=== PATIENT | female | born 1975 | race Caucasian/White ===

== ENCOUNTER 2022-03-25 20:38 | Emergency (ER) | payer MEDICAID, SELFPAY ==
[2022-03-25 20:38] VITALS: BP 164/91; PULSE 101; RESP 16; TEMP 38.4; O2SAT 96; BMI 36.3
--- NOTE | 2022-03-25 20:47 | XR_ITS ---
PROCEDURE INFORMATION: Exam: XR Chest Exam date and time: 03/25/2022 8:53 PM Age: 47 years old Clinical indication: Fever and other: Congestion; Additional info: Congestion fever TECHNIQUE: Imaging protocol: Radiologic exam of the chest. Views: 2 views. COMPARISON: No relevant prior studies available. FINDINGS: Lungs: No consolidation. Pleural spaces: No pneumothorax. Heart/Mediastinum: No cardiomegaly. Bones/joints: No acute fracture. IMPRESSION: No acute findings.
[2022-03-25 20:50] LABS: Coronavirus 19, PCR Not Detected (NotDetected); Influenza B, PCR Not Detected (NotDetected); Microscopic, Urine URINE MICROSCOPIC (MICROSCOPIC)
--- NOTE | 2022-03-25 20:50 | ECG_ITS ---
APPROVED REPORT Exam: Resting ECG HR:96 bpm ECG Measurements Heart Rate 96 AXES MO 106 P 73 QRSd 90 QRS 85 QT 338 T 52 QTc 391 Conclusion SINUS RHYTHM WITH SHORT MO INTERVAL POSSIBLE RIGHT VENTRICULAR CONDUCTION DELAY [RSR (QR) IN V1/V2] NONSPECIFIC ST & T-WAVE ABNORMALITY BORDERLINE ECG UNCONFIRMED REPORT Electronically signed by : Bhupinder Villalobos MD 03/27/2022 21:13:38
--- NOTE | 2022-03-25 20:55 | PC.NURSE ---
RAD at for CXR
[2022-03-25 21:03] LABS: Appearance,Urine CLEAR (Clear); Blood, Urine Negative (Negative); Color,Urine YELLOW (Yellow); Glucose,Urine (UA) Negative (Negative); Ketones,Urine 1+ (Negative); Leukocyte Esterase,Urine Negative (Negative); Nitrate,Urine Negative (Negative); Protein,Urine Negative (Negative); Specific Gravity, Urine 1.025 (1.005-1.030)
[2022-03-25 21:18] LABS: Chloride 100 mmol/L (98-107)
[2022-03-25 21:19] LABS: Basophils # 0.1 K/mm3 (0-0.2); Basophils % 1.6 % (0.1-2.0); Eosinophils # 0.4 K/mm3 (0.0-0.4); Eosinophils % 7.2 % (0.1-12.0); Hematocrit 45.5 % (37.0-47.0); Lymphocytes # 0.8 K/mm3 (0.7-4.5); Lymphocytes % 13.4 % (10-50); Mean Corpuscular Hemoglobin 31.6 pg (27.0-31.2); Mean Corpuscular Volume 95.8 fl (81-99); Mean Platelet Volume 9.3 fl (7.4-10.4); Monocytes # 0.3 K/mm3 (0.1-1.0); Monocytes % 5.3 % (1.7-9.3); Neutrophils # 4.2 K/mm3 (1.8-7.8); Neutrophils % 72.5 % (37.0-80.0); Platelet Count 201 K/mm3 (142-424); Potassium 3.6 mmoL/L (3.5-5.1); Red Blood Count 4.75 M/mm3 (4.20-5.40); Red Cell Distribution Width 13.5 % (11.5-17.5); Sodium 139 mmol/L (136-145); White Blood Count 5.7 K/mm3 (4.8-10.8)
[2022-03-25 21:20] LABS: Bacteria,Urine Trace /lpf; Bilirubin,Urine Negative (Negative); WBC,Urine Occasional #/hpf (0-3)
[2022-03-25 21:21] LABS: Alanine Aminotransferase 34 U/L (12-78); Albumin/Globulin Ratio 1.3 (1.1-1.8); Alkaline Phosphatase 112 U/L (38-126); Anion Gap 12.6 mEq/L (5-15); Aspartate Amino Transferase 34 U/L (14-36); Bilirubin,Total 0.3 mg/dl (0.2-1.3); Blood Urea Nitrogen 6 mg/dl (7-17); Carbon Dioxide 30 mmol/L (22.0-30.0); Creatinine Clearance Estimated 140 mL/min (50-200); Estimated Glomerular Filt Rate 77 ml/min (>60); GFR (African American) 93 ML/MIN (>60)
[2022-03-25 21:22] LABS: Calcium 8.4 mg/dl (8.4-10.2); Glucose 107 mg/dl (74-100); Lactic Acid 0.6 mmol/L (0.7-2.1)
--- NOTE | 2022-03-25 21:24 | PC.NURSE ---
Dr. Gilbert at
--- NOTE | 2022-03-25 21:27 | HMH.EDURI ---
Discharge Plan Disposition Patient Disposition: Home, Self-Care Prescriptions Prescriptions: New oseltamivir [Tamiflu] 75 mg capsule 75 mg PO BID 5 Days Qty: 10 0RF oseltamivir [Tamiflu] 75 mg capsule 75 mg PO BID 5 Days Qty: 10 0RF Referrals Follow up/Referrals: Provider,Referral, MD [Referring] - See instructions Clinical Impressions Clinical Impression: Influenza Instructions Patient Instructions: DI for Influenza -- Adult Discharge ED Provider: Arturo Gilbert URI/Sore Throat HPI General Chief Complaint: Upper Respiratory Infection Stated Complaint: Fever Time Seen by Provider: 03/25/22 21:27 Mode of Arrival: EMS Source of Information: Patient, EMS and Medical Record Limitations: No Limitations Description of Symptoms (Recalled from ER Triage Doc. by RN): pt c/o cough,congestion, fever, body aches since saturday History of Present Illness HPI Narrative: uri sx with cough and congestion over the last few days Complaint: cough and nasal congestion Onset (ago): day(s) Duration: intermittent Severity: moderate Associated symptoms: denies other symptoms Related Data Previous Rx's Medication Instructions Recorded oseltamivir 75 mg capsule (Tamiflu) 75 mg PO BID 5 days #10 caps 03/25/22 oseltamivir 75 mg capsule (Tamiflu) 75 mg PO BID 5 days #10 caps 03/25/22 Allergies Allergy/AdvReac Type Severity Reaction Status Date / Time cefdinir [From Omnicef] Allergy Verified 03/25/22 20:42 fluticasone Allergy Verified 03/25/22 20:42 [From Advair Diskus] salmeterol Allergy Verified 03/25/22 20:42 [From Advair Diskus] morphine AdvReac Verified 03/25/22 20:42 PFSH PFSH Social History Smoking Status: Never smoker alcohol intake: never current occupational status: employed Travel in the last 8 weeks: None ROS Obtained: Yes All systems reviewed & no additional complaints except as documented Physical Exam General General appearance: alert Head Head exam: normocephalic Eye Eye exam: Present PERRL and EOMI ENT ENT exam: Present mucous membranes moist Neck Neck exam: Present trachea midline Respiratory Respiratory exam: Present normal lung sounds bilaterally; Absent respiratory distress Cardiovascular Cardiovascular exam: Present regular rate Abdominal Exam Abdominal exam: Present soft Extremities Exam Extremities exam: Present full ROM Neurological Exam Neurological exam: Present alert, oriented X3 and CN II-XII intact Psychiatric Psychiatric exam: Present normal affect Skin Skin exam: Absent rash Medical Decision Making Medical Records Medical records reviewed: Yes I reviewed the patient's medical records. Gerald Inquiry Pt receiving controlled substance: No Vital Signs: 03/25/22 20:38 03/25/22 21:30 Temperature 101.1 F H Temperature Source Oral Pulse Rate 101 H Pulse Rate [Right] 101 H Respiratory Rate 16 Blood Pressure 141/87 H Blood Pressure [Right Arm] 164/91 H Blood Pressure Mean [Right Arm] 115 02 Sat by Pulse Oximetry 96 93 L Oxygen Delivery Method Room Air Lab Data Lab results reviewed: Yes I reviewed the patient's lab results. Lab Results 03/25/22 20:46: Urine Color Yellow, Urine Appearance Clear, Urine pH 6.0, Ur Specific [place] 1.025, Urine Protein Negative, Urine Glucose (UA) Negative, Urine Ketones 1+, Urine Blood Negative, Urine Nitrate Negative, Urine Bilirubin Negative, Urine Urobilinogen 1.0, Ur Leukocyte Esterase Negative, Urine RBC None, Urine WBC Occasional, Ur Squamous Epith Cells 3-5, Urine Bacteria Trace 03/25/22 20:46: SARS-CoV-2 (PCR) Not detected, Influenza A Untype (PCR) Detected A, Influenza Type B (PCR) Not detected 03/25/22 21:00: WBC 5.7, RBC 4.75, Hgb 15.0, Hct 45.5, MCV 95.8, MCH 31.6 H, MCHC 33.0, RDW 13.5, Plt Count 201, MPV 9.3, Neut % (Auto) 72.5, Lymph % (Auto) 13.4, [place] % (Auto) 5.3, Eos % (Auto) 7.2, Baso % (Auto) 1.6, Neut # (Auto) 4.2, Lymph # (Auto) 0.8, [place] # (Auto) 0.3, Eos # (A
[2022-03-25 21:30] VITALS: BP 141/87; PULSE 101; O2SAT 93
[2022-03-25 21:48] LABS: Erythrocyte Sedimentation Rate 17 mm/hr (0-20)
[2022-03-25 21:49] LABS: Influenza A, PCR Detected (NotDetected)
[2022-03-25 21:56] LABS: Procalcitonin 0.086 ng/mL (0.0-2.0)
[2022-03-25 22:30] VITALS: BP 134/90; PULSE 93; RESP 16; TEMP 37.2; O2SAT 94
--- NOTE | 2022-03-25 22:42 | PC.NURSE ---
pt very upset upon discharge. pt ststed her bp was high. The cuff appeared loose and off proper location so i adjusted it and retook it her bp was with in normal limits pt was still verbally aggressive then proceeded to the lobby.
== END 2022-03-25 22:30 | disposition home or self-care (01) ==
PROVIDERS: Emergency Provider Emergency Medicine; PCP Family Medicine
DX: J10.1 Influenza due to other identified influenza virus with other respiratory manifestations (principal)
CPT/HCPCS: 71046; 80053; 81001; 83605; 84145; 85025; 85651; 87040; 93005; 99283; C9803; U0003; U0005

== ENCOUNTER 2022-03-26 09:15 | Emergency (ER) | payer MEDICAID, SELFPAY ==
[2022-03-26 09:15] VITALS: BP 111/72; PULSE 90; RESP 18; TEMP 36.9; O2SAT 96; BMI 36.3
--- NOTE | 2022-03-26 09:18 | ECG_ITS ---
APPROVED REPORT Exam: Resting ECG HR:78 bpm ECG Measurements Heart Rate 78 AXES FL 124 P 76 QRSd 95 QRS 85 QT 378 T 59 QTc 411 Conclusion SINUS RHYTHM WITH SINUS ARRHYTHMIA NONSPECIFIC ST & T-WAVE ABNORMALITY BORDERLINE ECG UNCONFIRMED REPORT Electronically signed by : Bhupinder Villalobos MD 03/27/2022 21:13:26
[2022-03-26 09:30] VITALS: BP 111/74; O2SAT 92
--- NOTE | 2022-03-26 09:31 | HMH.EDCP ---
Discharge Plan Disposition Patient Disposition: Home, Self-Care Prescriptions Prescriptions: New ondansetron HCl 4 mg Tablet 4 mg PO TID PRN (Reason: Nausea) Qty: 9 0RF No Action oseltamivir [Tamiflu] 75 mg capsule 75 mg PO BID 5 Days Qty: 10 0RF oseltamivir [Tamiflu] 75 mg capsule 75 mg PO BID 5 Days Qty: 10 0RF Referrals Follow up/Referrals: Provider,Referral, MD [Primary Care Provider] - See instructions Activity Restrictions/Add. Instructions Additional Instructions/Restrictions: Use tylenol and ibuprofen for pain and fever. Use the medications as prescribed and follow up with your primary care physician. Clinical Impressions Clinical Impression: Influenza, Atypical chest pain Instructions Patient Instructions: DI for Atypical Chest Pain Discharge ED Provider: Roger Islas Chest Pain HPI General Chief Complaint: Chest Pain Stated Complaint: CHEST PAIN Time Seen by Provider: 03/26/22 09:20 Mode of Arrival: Ambulatory Limitations: No Limitations Description of Symptoms (Recalled from ER Triage Doc. by RN): PT DISCHARGED LAST NIGHT WITH THE FLU, REPORTS CHEST PAIN AND HEADACHE SINCE YESTERDAY AM. CHESTPAIN CONTINUES History of Present Illness HPI narrative: 47-year-old female who presents with complaint of chest pain particularly worse with taking a deep breath however the patient was discharged from overnight ER evaluation and never left the facility she came back signing in prior to discharge and transport with complaint of chest pain stating that she has the flu. Reviewed the work-up from last night her complaint has not changed she states it has been constant continuous she is persistently coughing does not feel significantly short of breath. No history of thrombosis not on estrogenic medications at this time. Related Data Previous Rx's Medication Instructions Recorded oseltamivir 75 mg capsule (Tamiflu) 75 mg PO BID 5 days #10 caps 03/25/22 oseltamivir 75 mg capsule (Tamiflu) 75 mg PO BID 5 days #10 caps 03/25/22 ondansetron HCl 4 mg tablet 4 mg PO TID PRN Nausea #9 tabs 03/26/22 Allergies Allergy/AdvReac Type Severity Reaction Status Date / Time cefdinir [From Omnicef] Allergy Verified 03/25/22 20:42 fluticasone Allergy Verified 03/25/22 20:42 [From Advair Diskus] salmeterol Allergy Verified 03/25/22 20:42 [From Advair Diskus] morphine AdvReac Verified 03/25/22 20:42 PFSH PFSH Social History Smoking Status: Never smoker alcohol intake: never current occupational status: employed Travel in the last 8 weeks: None ROS Obtained: Yes Systems reviewed as appropriate & no additional complaints except as documented Physical Exam General General appearance: alert and in no apparent distress ENT ENT exam: Present mucous membranes moist Chest Chest inspection: Present symmetric chest wall rise Respiratory Respiratory exam: Present normal lung sounds bilaterally; Absent respiratory distress or wheezes Cardiovascular Cardiovascular exam: Present regular rate Abdominal Exam Abdominal exam: Absent distention Neurological Exam Neurological exam: Present alert and oriented X3 Skin Skin exam: Present warm, dry and intact Medical Decision Making Medical Records Medical records reviewed: Yes I reviewed the patient's medical records. Gerald Inquiry Pt receiving controlled substance: No Gerald was queried for this patient: No Vital Signs: 03/26/22 09:15 Temperature 98.5 F Temperature Source Oral Pulse Rate [Apical] 90 Respiratory Rate 18 Blood Pressure [Right Arm] 111/72 Blood Pressure Mean [Right Arm] 85 Blood Pressure Source [Right Arm] Automatic Cuff Blood Pressure Position [Right Arm] Sitting 02 Sat by Pulse Oximetry 96 Oxygen Delivery Method Room Air Lab Data Lab results reviewed: Yes I reviewed the patient's lab results. Lab Results 03/26/22 09:20: Troponin I < 0.01
--- NOTE | 2022-03-26 09:51 | PC.NURSE ---
0989 ED MD AT BEDSIDE FOR EVALUATION
[2022-03-26 09:57] LABS: Troponin I < 0.01 ng/ml (0.00-0.034)
[2022-03-26 10:00] VITALS: BP 120/72; PULSE 79; RESP 20; O2SAT 94
--- NOTE | 2022-03-26 10:23 | PC.NURSE ---
transport van here for pt
--- NOTE | 2022-03-26 10:24 | PC.NURSE ---
ED MD AT BEDSIDE TO DISCUSS DISCHARGE WITH PT
[2022-03-26 10:29] VITALS: BP 120/72; PULSE 79; RESP 18; TEMP 36.8; O2SAT 96
== END 2022-03-26 10:30 | disposition home or self-care (01) ==
PROVIDERS: Emergency Provider Student in an Organized Health Care Education/Training Program
DX: J11.1 Influenza due to unidentified influenza virus with other respiratory manifestations (principal); R07.89 Other chest pain; R11.0 Nausea; R51.9 Headache, unspecified; Z79.899 Other long term (current) drug therapy; Z88.5 Allergy status to narcotic agent; Z88.8 Allergy status to other drugs, medicaments and biological substances
CPT/HCPCS: 84484; 93005; 96372; 99284

== ENCOUNTER 2022-07-17 12:35 | Emergency (ER) | payer MEDICAID, SELFPAY ==
[2022-07-17 13:00] VITALS: BP 128/78; PULSE 76; RESP 20; TEMP 37.1; O2SAT 98; BMI 32.1
--- NOTE | 2022-07-17 13:02 | EXP.UTC ---
Discharge Plan Disposition Patient Disposition: Home, Self-Care Condition: Good Prescriptions Prescriptions: New prednisone 10 mg tablet 10 mg PO DIRECTED 9 Days Qty: 21 0RF Rx Instructions: Take 4 tablets daily for 3 days, then take 2 tablets daily for 3 days, then take 1 tablet daily for 3 days, then stop. pseudoephedrine HCl 30 mg tablet 30 mg PO Q6HP PRN (Reason: Congestion) Qty: 30 0RF amoxicillin-pot clavulanate 875-125 mg Tablet 1 tab PO Q12H Qty: 20 0RF Zyrtec 10 mg capsule 10 mg PO DAILY 30 Days Qty: 30 5RF Referrals Follow up/Referrals: Provider,Referral, MD [Primary Care Provider] - See instructions Activity Restrictions/Add. Instructions Additional Instructions/Restrictions: Drink plenty of fluids. Take tylenol or ibuprofen for pain or fever. Take the medications as directed. Follow up with your regular doctor. GO TO THE ER FOR ANY WORSENING SYMPTOMS Don't start the oral steroids until tomorrow, since you had the shot here today. Clinical Impressions Clinical Impression: Chronic sinusitis Discharge ED Provider: Dinesh Phoenix [facility] General Stated complaint: Congestion drainage Time Seen by Provider: 07/17/22 13:02 History of Present Illness Provider Complaint: She states that for the past 2 months or so she has had sinus congestion. She states that she has a history of getting chronic sinus infections. Related Data Previous Rx's Medication Instructions Recorded amoxicillin 875 mg-potassium 1 tab PO Q12H #20 tabs 07/17/22 clavulanate 125 mg tablet cetirizine 10 mg capsule (Zyrtec) 10 mg PO DAILY 30 days #30 caps 07/17/22 prednisone 10 mg tablet 10 mg PO DIRECTED 9 days #21 07/17/22 tabs pseudoephedrine HCl 30 mg tablet 30 mg PO Q6HP PRN Congestion #30 07/17/22 tabs Allergies Allergy/AdvReac Type Severity Reaction Status Date / Time cefdinir [From Omnicef] Allergy Verified 07/17/22 13:09 fluticasone Allergy Verified 07/17/22 13:09 [From Advair Diskus] salmeterol Allergy Verified 07/17/22 13:09 [From Advair Diskus] morphine AdvReac Verified 07/17/22 13:09 [facility] Disclaimer: The information contained in this section may have been updated after the patient was seen, as this information can be updated by other users. Social History Smoking Status: Never smoker alcohol intake: never current occupational status: employed Travel in the last 8 weeks: None ROS Obtained: Yes All systems reviewed & no additional complaints except as documented Constitutional Constitutional: Reports poor appetite Eyes Eyes: Reports system reviewed and no additional complaints, except as documented ENT Ears, Nose, Mouth, and Throat: Reports as per HPI Cardiovascular Cardiovascular: Reports system reviewed and no additional complaints, except as documented and Denies chest pain Respiratory Respiratory: Denies shortness of breath, Denies chest congestion, Reports cough, Denies stridor and Denies wheezing Gastrointestinal Gastrointestingal: Reports system reviewed and no additional complaints, except as documented; Denies abdominal pain, diarrhea or vomiting Musculoskeletal Musculoskeletal: Reports system reviewed and no additional complaints, except as documented and Denies arthralgias Integumentary/Breasts Skin/Breast: Reports system reviewed and no additional complaints, except as documented and Denies rash Neurologic Neurologic: Denies paresthesias Allergic/Immunologic Allergic/Immunologic: Denies wheezing Physical Exam General General appearance: alert and in no apparent distress Eye Eye exam: Present normal appearance, PERRL and EOMI ENT ENT exam: Present mucous membranes moist and normal external ear exam Expanded ENT Exam External ear exam: Present normal external inspection TM/Canal exam: Bilateral TM: erythema and bulging Nose exam: Absent sinus tenderness
[2022-07-17 14:05] VITALS: BP 128/78; PULSE 76; RESP 20; TEMP 37.1; O2SAT 98
== END 2022-07-17 14:04 | disposition home or self-care (01) ==
PROVIDERS: Emergency Provider Nurse Practitioner Family
DX: J32.9 Chronic sinusitis, unspecified (principal)
CPT/HCPCS: 96372; 99212; 99213; G0463

== ENCOUNTER → 2022-08-20 16:32 | Outpatient (CLI) | payer MEDICAID, SELFPAY ==
[2022-08-20 16:00] LABS: Basophils # 0.1 K/mm3 (0-0.2); Basophils % 1.8 % (0.1-2.0); Eosinophils # 0.5 K/mm3 (0.0-0.4); Eosinophils % 7.6 % (0.1-12.0); Lymphocytes # 1.7 K/mm3 (0.7-4.5); Lymphocytes % 27.2 % (10-50); Mean Corpuscular HGB Conc 32.5 g/dL (31.8-35.4); Mean Corpuscular Hemoglobin 31.1 pg (27.0-31.2); Mean Corpuscular Volume 95.7 fl (81-99); Monocytes # 0.3 K/mm3 (0.1-1.0); Monocytes % 4.9 % (1.7-9.3); Neutrophils # 3.7 K/mm3 (1.8-7.8); Neutrophils % 58.5 % (37.0-80.0); Platelet Count 321 K/mm3 (142-424); Red Cell Distribution Width 13.4 % (11.5-17.5); White Blood Count 6.3 K/mm3 (4.8-10.8)
[2022-08-20 16:23] LABS: Alanine Aminotransferase 16 U/L (12-78); Albumin Level 4.6 g/dl (3.5-5.0); Albumin/Globulin Ratio 1.8 (1.1-1.8); Alkaline Phosphatase 92 U/L (38-126); Anion Gap 5.8 mEq/L (5-15); Aspartate Amino Transferase 20 U/L (14-36); Bilirubin,Total 0.5 mg/dl (0.2-1.3); Blood Urea Nitrogen 7 mg/dl (7-17); Carbon Dioxide 29 mmol/L (22.0-30.0); Chloride 101 mmol/L (98-107); Chol/HDL Ratio 5.8 (1-3.5); Cholesterol 272 mg/dl (140-200); Estimated Glomerular Filt Rate 90 ml/min (>60); GFR (African American) 109 ML/MIN (>60); Globulin 2.5 g/dL (1.3-3.2); Glucose 91 mg/dl (74-100); HDL Cholesterol 47 mg/dl (40-60); Potassium 3.8 mmoL/L (3.5-5.1); Sodium 132 mmol/L (136-145); Total Protein,Serum 7.1 g/dl (6.3-8.2); Triglycerides 116 mg/dl (30-150); VLDL Cholesterol 23 mg/dL (0-40)
[2022-08-20 16:24] LABS: Hemoglobin A1C 5.1 % (4.0-6.0)
[2022-08-20 16:34] LABS: Direct LDL Cholesterol 185.06 mg/dL (100-129)
[2022-08-28 05:16] LABS: Hep A Ab, IgM NEGATIVE; Hepatitis B Surface Antigen NEGATIVE
[2022-08-28 05:17] LABS: Hepatitis B Core Antibody IgM NEGATIVE; Hepatitis C Antibody NON REACTIVE
== END ==
PROVIDERS: PCP Nurse Practitioner Family; Visit Provider Nurse Practitioner Family
DX: F19.10 Other psychoactive substance abuse, uncomplicated (principal); D64.9 Anemia, unspecified; Z13.1 Encounter for screening for diabetes mellitus; Z68.32 Body mass index [BMI] 32.0-32.9, adult; E78.5 Hyperlipidemia, unspecified; Z00.00 Encounter for general adult medical examination without abnormal findings; E66.9 Obesity, unspecified; E03.9 Hypothyroidism, unspecified
CPT/HCPCS: 80053; 80061; 80074; 83036; 84443; 85025

== ENCOUNTER → 2022-12-20 09:42 | Outpatient (CLI) | payer MEDICAID, SELFPAY | PROVIDERS: PCP Nurse Practitioner Family; Visit Provider Nurse Practitioner Family | DX: R10.2 Pelvic and perineal pain (principal) | CPT/HCPCS: 87086 ==

== ENCOUNTER 2023-02-19 16:08 | Emergency (ER) | payer MEDICAID, SELFPAY ==
[2023-02-19 16:09] VITALS: BP 115/76; PULSE 64; RESP 16; O2SAT 99; BMI 26.7
--- NOTE | 2023-02-19 16:25 | PC.NURSE ---
pt to restroom at this time.
--- NOTE | 2023-02-19 16:31 | PC.NURSE ---
MATT sent to lab; Irina RN at . Call melvin within reach
[2023-02-19 16:33] LABS: Microscopic, Urine URINE MICROSCOPIC (MICROSCOPIC)
[2023-02-19 16:38] LABS: Appearance,Urine CLEAR (Clear); Bilirubin,Urine Negative (Negative); Blood, Urine Negative (Negative); Color,Urine YELLOW (Yellow); Glucose,Urine (UA) Negative (Negative); Ketones,Urine Negative (Negative); Leukocyte Esterase,Urine Negative (Negative); Nitrate,Urine Negative (Negative); Protein,Urine Negative (Negative); Specific Gravity, Urine >= 1.030 (1.005-1.030); Urobilinogen,Urine 0.2 EU/dl (0.2)
--- NOTE | 2023-02-19 16:41 | CT_ITS ---
PROCEDURE INFORMATION: Exam: CT Lumbar Spine Without Contrast Exam date and time: 02/19/2023 4:55 PM Age: 48 years old Clinical indication: Low back pain; Prior surgery; Surgery date: 6+ months; Surgery type: Partial hysterectomy and tubal ligation; Additional info: Low back pain radiating R him, previous trauma TECHNIQUE: Imaging protocol: Computed tomography of the lumbar spine without contrast. Radiation optimization: All CT scans at this facility use at least one of these dose optimization techniques: automated exposure control; mA and/or kV adjustment per patient size (includes targeted exams where dose is matched to clinical indication); or iterative reconstruction. REPORTING DATA: Count of CT and Cardiac NM exams in prior 12 months: This patient has received 0 known CTs and 0 known cardiac nuclear medicine studies in the 12 months prior to the current study. COMPARISON: No relevant prior studies available. FINDINGS: Bones/joints: Trace 1-2 mm of retrolisthesis of L3 on L4. No acute fracture seen. No high-grade disc height loss. At L3-L4, disc bulge and potential central disc protrusion probably causing moderate central spinal canal stenosis and potentially narrowing the lateral recesses. At L4-L5, disc bulge, facet arthropathy and ligamentum flavum buckling causing bilateral lateral recess stenoses as well as left neural foraminal stenosis, [id number] in degree. Soft tissues: Unremarkable. IMPRESSION: 1. No acute fracture seen. 2. Suspected stenoses at L3-L4 and L4-L5. A follow-up MRI lumbar spine may be obtained for further characterization, as needed.
--- NOTE | 2023-02-19 16:41 | CT_ITS ---
PROCEDURE INFORMATION: Exam: CT Pelvis Without Contrast; Skeletal Exam date and time: 02/19/2023 5:00 PM Age: 48 years old Clinical indication: Pelvic pain; Prior surgery; Surgery date: 6+ months; Surgery type: Partial hysterectomy and tubal ligation; Additional info: R si pain, previous trauma, possible ibd TECHNIQUE: Imaging protocol: Computed tomography of the pelvis without contrast. Exam focused on the skeleton. Radiation optimization: All CT scans at this facility use at least one of these dose optimization techniques: automated exposure control; mA and/or kV adjustment per patient size (includes targeted exams where dose is matched to clinical indication); or iterative reconstruction. REPORTING DATA: Count of CT and Cardiac NM exams in prior 12 months: This patient has received 0 known CTs and 0 known cardiac nuclear medicine studies in the 12 months prior to the current study. COMPARISON: CT LUMBAR SPINE WO CON 02/19/2023 4:55 PM FINDINGS: Stomach and bowel: The imaged bowel is unremarkable. Reproductive: Prior hysterectomy. No visible adnexal masses. Bones/joints: No acute fracture seen. No dislocation. Mild degenerative changes of the symphysis pubis and hips. Soft tissues: Unremarkable. IMPRESSION: No acute fracture seen.
--- NOTE | 2023-02-19 16:43 | HMH.EDGENADL ---
Discharge Plan Disposition Chief Complaint: Abdominal Pain Prescriptions Prescriptions: No Action acyclovir 400 mg tablet 400 mg PO BID omeprazole 20 mg capsule,delayed release(DR/EC) 20 mg PO BID albuterol sulfate 90 mcg/actuation HFA aerosol inhaler 2 puff inhalation Q4-6H PRN (Reason: shortness of breath or wheezing) Qty: 8.5 3RF fluticasone furoate-vilanterol 200-25 mcg/dose blister with device 1 inh inhalation DAILY Qty: 60 3RF Zyrtec 10 mg capsule 10 mg PO DAILY 30 Days Qty: 30 5RF Referrals Follow up/Referrals: Crista Mccallum APRN [Primary Care Provider] - See instructions Instructions Patient Instructions: DI for Acute Abdominal Pain Discharge ED Provider: Jignesh Ruelas General Adult HPI General Chief complaint: Abdominal Pain Stated complaint: back pain radiating toabd Time Seen by Provider: 02/19/23 16:27 Mode of Arrival: Ambulatory Source of Information: Patient Limitations: No Limitations Description of Symptoms (Recalled from ER Triage Doc. by RN): pt presents to ED c/o right lower back pain that radiates to right lower quadrant. pt denies vomiting or diarrhea. pt reports nausea d/t pain. pt states pain is worse with activity. History of Present Illness HPI narrative: Patient is a 48-year-old female with past medical history of self-reported possible undiagnosed inflammatory bowel disease, bulging disc in her lumbar spine who presents emergency department for evaluation of back pain. Patient states that she fell last week going down a hill onto her backside. Over the last 24 to 48 hours she has developed lumbar pain and right posterior hip pain radiating around her hip. Pain is moderate to severe in intensity. Refractory to Tylenol. Worse with movement. No saddle anesthesia, no urinary incontinence, no bowel incontinence. No other acute complaints at this time. Patient no longer has her period. Related Data Home Medications Medication Instructions Recorded Confirmed acyclovir 400 mg tablet 400 mg PO BID 08/20/22 12/20/22 omeprazole 20 mg capsule,delayed 20 mg PO BID 08/20/22 12/20/22 release Previous Rx's Medication Instructions Recorded cetirizine 10 mg capsule (Zyrtec) 10 mg PO DAILY 30 days #30 caps 07/17/22 albuterol sulfate 90 mcg/actuation 2 puff inhalation Q4-6H PRN 12/20/22 aerosol inhaler shortness of breath or wheezing #8.5 grams fluticasone furoate 200 1 inh inhalation DAILY #60 ea 12/20/22 mcg-vilanterol 25 mcg/dose inhalation powder Allergies Allergy/AdvReac Type Severity Reaction Status Date / Time cefdinir [From Omnicef] Allergy Verified 12/20/22 08:53 fluticasone Allergy Verified 12/20/22 08:53 [From Advair Diskus] salmeterol Allergy Verified 12/20/22 08:53 [From Advair Diskus] morphine AdvReac Verified 12/20/22 08:53 PFSH PFS Disclaimer: The information contained in this section may have been updated after the patient was seen, as this information can be updated by other users. Medical History Atypical chest pain Esophagitis 2006 H/O mammogram 2021 WNL History of left heart catheterization 1997 WNL Influenza Renal cyst left side, 2016 Surgical History H/O colonoscopy 2007 polypectomy and ulcerative colitis H/O knee surgery right knee History of partial hysterectomy 2006, still has ovaries Hx of tubal ligation 2002 Family History Father Diabetes Depression Cancer lung CHF (congestive heart failure) Hyperlipidemia Hypertension Mother Osteoporosis DDD (degenerative disc disease) Depression FHx: mental illness Brother FHx: mental illness Son Marfan syndrome Social History Smoking Status: Current every day smoker years smoke
--- NOTE | 2023-02-19 16:46 | PC.NURSE ---
Dr. Ruelas at [facility] for pt eval
[2023-02-19 16:48] LABS: Basophils # 0.1 K/mm3 (0-0.2); Basophils % 0.9 % (0.1-2.0); Eosinophils # 0.5 K/mm3 (0.0-0.4); Eosinophils % 9.9 % (0.1-12.0); Hematocrit 48.3 % (37.0-47.0); Lymphocytes % 37.7 % (10-50); Mean Corpuscular HGB Conc 33.1 g/dL (31.8-35.4); Mean Corpuscular Hemoglobin 31.2 pg (27.0-31.2); Mean Platelet Volume 9.1 fl (7.4-10.4); Monocytes # 0.5 K/mm3 (0.1-1.0); Monocytes % 9.6 % (1.7-9.3); Neutrophils # 2.2 K/mm3 (1.8-7.8); Neutrophils % 41.9 % (37.0-80.0); Platelet Count 223 K/mm3 (142-424); Red Blood Count 5.14 M/mm3 (4.20-5.40); Red Cell Distribution Width 12.9 % (11.5-17.5); White Blood Count 5.3 K/mm3 (4.8-10.8)
--- NOTE | 2023-02-19 16:49 | PC.NURSE ---
TO CT via stretcher
[2023-02-19 16:53] LABS: Alanine Aminotransferase 21 U/L (12-78); Albumin Level 4.5 g/dl (3.5-5.0); Albumin/Globulin Ratio 1.4 (1.1-1.8); Alkaline Phosphatase 59 U/L (38-126); Aspartate Amino Transferase 29 U/L (14-36); Bilirubin,Total 0.4 mg/dl (0.2-1.3); Blood Urea Nitrogen 14 mg/dl (7-17); Calcium 8.9 mg/dl (8.4-10.2); Carbon Dioxide 26 mmol/L (22.0-30.0); Chloride 106 mmol/L (98-107); Creatinine Clearance Estimated 93 mL/min (50-200); Estimated Glomerular Filt Rate 67 ml/min (>60); GFR (African American) 81 ML/MIN (>60); Globulin 3.2 g/dL (1.3-3.2); Glucose 106 mg/dl (74-100); Lipase 101 U/L (23-300); Sodium 141 mmol/L (136-145); Total Protein,Serum 7.7 g/dl (6.3-8.2)
[2023-02-19 17:07] LABS: Bacteria,Urine Trace /lpf; Mucus,Urine Trace /lpf
[2023-02-19 17:57] LABS: Erythrocyte Sedimentation Rate 11 mm/hr (0-20)
--- NOTE | 2023-02-19 18:04 | PC.NURSE ---
Rounded on patient; pt given a warm blanket, call melvin within reach
[2023-02-19 18:11] VITALS: BP 115/76; PULSE 64; RESP 16; TEMP 36.6
== END 2023-02-19 18:12 | disposition home or self-care (01) ==
PROVIDERS: Emergency Provider Emergency Medicine; PCP Nurse Practitioner Family
DX: R10.31 Right lower quadrant pain (principal); M54.50 Low back pain, unspecified; M25.551 Pain in right hip; F17.200 Nicotine dependence, unspecified, uncomplicated
CPT/HCPCS: 72131; 72192; 80053; 81001; 83690; 85025; 85651; 96374; 96375; 99285; J0131

== ENCOUNTER 2023-06-27 15:28 | Emergency (ER) | payer MEDICAID, SELFPAY ==
[2023-06-27 15:41] VITALS: BP 133/62; PULSE 74; RESP 14; TEMP 36.9; O2SAT 97; BMI 29.2
[2023-06-27 16:00] VITALS: BP 119/88; PULSE 72; O2SAT 97
[2023-06-27 16:20] VITALS: BP 112/78; PULSE 68; RESP 20; O2SAT 99
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
[2023-06-27] MEDS: KETOROLAC 30MG/ML VIAL 15 MG IM (16:57)
[2023-06-27] MEDS: LIDOCAINE 5% TRANSDERMAL PATCH 1 EACH TP (16:57)
[2023-06-27] MEDS: DEXAMETHASONE 4MG/ML 1ML VIAL 10 MG IM (16:58)
[2023-06-27 17:13] VITALS: BP 121/67; PULSE 71; RESP 18; TEMP 36.7
== END 2023-06-27 17:15 | disposition home or self-care (01) ==
PROVIDERS: Emergency Provider Emergency Medicine; PCP Nurse Practitioner Family
DX: M51.17 Intervertebral disc disorders with radiculopathy, lumbosacral region (principal); M54.41 Lumbago with sciatica, right side; M79.604 Pain in right leg
CPT/HCPCS: 96372; 99283

== ENCOUNTER 2023-07-10 21:10 | Outpatient (CLI) | payer MEDICAID, SELFPAY ==
[2023-07-10 18:47] LABS: Basophils % 0.3 % (0.1-2.0); Eosinophils # 0.7 K/mm3 (0.0-0.4); Eosinophils % 8.3 % (0.1-12.0); Hematocrit 44.9 % (37.0-47.0); Hemoglobin 15.1 g/dL (12.2-16.2); Lymphocytes # 1.3 K/mm3 (0.7-4.5); Lymphocytes % 14.9 % (10-50); Mean Corpuscular HGB Conc 33.7 g/dL (31.8-35.4); Mean Corpuscular Hemoglobin 32.5 pg (27.0-31.2); Mean Corpuscular Volume 96.5 fl (81-99); Mean Platelet Volume 9.3 fl (7.4-10.4); Monocytes # 0.5 K/mm3 (0.1-1.0); Monocytes % 5.1 % (1.7-9.3); Neutrophils # 6.2 K/mm3 (1.8-7.8); Neutrophils % 71.3 % (37.0-80.0); Platelet Count 257 K/mm3 (142-424); Red Blood Count 4.65 M/mm3 (4.20-5.40); Red Cell Distribution Width 13.3 % (11.5-17.5); White Blood Count 8.7 K/mm3 (4.8-10.8)
[2023-07-10 19:12] LABS: Alanine Aminotransferase 34 U/L (12-78); Albumin Level 4.4 g/dl (3.5-5.0); Albumin/Globulin Ratio 1.9 (1.1-1.8); Alkaline Phosphatase 66 U/L (38-126); Anion Gap 11.1 mEq/L (5-15); Aspartate Amino Transferase 26 U/L (14-36); Bilirubin,Total 0.5 mg/dl (0.2-1.3); Blood Urea Nitrogen 10 mg/dl (7-17); Carbon Dioxide 28 mmol/L (22.0-30.0); Chloride 104 mmol/L (98-107); Estimated Glomerular Filt Rate 89 ml/min (>60); GFR (African American) 108 ML/MIN (>60); Globulin 2.3 g/dL (1.3-3.2); Glucose 94 mg/dl (74-100); Potassium 4.1 mmoL/L (3.5-5.1); Sodium 139 mmol/L (136-145); Total Protein,Serum 6.7 g/dl (6.3-8.2)
[2023-07-10 19:29] LABS: Free T4 (Free Thyroxine) 0.88 ng/dl (0.78-2.19)
[2023-07-12 08:06] LABS: HBsAg Screen Negative (Negative); HCV Ab Non Reactive (Non Reactive); Hep A Ab, IGM Negative (Negative); Hep B Core Ab, IgM Negative (Negative)
[2023-07-12 11:13] LABS: Rapid Plasma Reagin Ab Titer Non Reactive titer (NonRea<1:1)
[2023-07-14 07:08] LABS: Neisseria gonorrhoeae, NAA Negative (Negative)
== END 2023-07-10 23:59 ==
LOC: LAB.DROPOF 21:10
PROVIDERS: PCP Nurse Practitioner Family; Visit Provider Nurse Practitioner Family
DX: D64.9 Anemia, unspecified (principal); E03.8 Other specified hypothyroidism; Z11.3 Encounter for screening for infections with a predominantly sexual mode of transmission; Z11.8 Encounter for screening for other infectious and parasitic diseases; Z72.51 High risk heterosexual behavior; Z13.1 Encounter for screening for diabetes mellitus; Z79.899 Other long term (current) drug therapy
CPT/HCPCS: 80053; 80074; 84439; 84443; 85025; 86593; 87491; 87591

== ENCOUNTER 2023-08-21 12:38 | Emergency (ER) | payer MEDICAID, SELFPAY ==
[2023-08-21 12:50] VITALS: BP 129/88; PULSE 73; RESP 18; TEMP 36.7; O2SAT 100; BMI 31.3
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
[2023-08-21 13:40] VITALS: BP 129/88; PULSE 73; RESP 18; TEMP 36.7; O2SAT 100
== END 2023-08-21 13:40 | disposition home or self-care (01) ==
PROVIDERS: Emergency Provider Nurse Practitioner; PCP Nurse Practitioner Family
DX: J01.90 Acute sinusitis, unspecified (principal); R51.9 Headache, unspecified; R09.82 Postnasal drip; R09.81 Nasal congestion; Z87.891 Personal history of nicotine dependence
CPT/HCPCS: 99212; 99214; G0463